=== PATIENT | female | born 1985 | race African-American/Black ===

== ENCOUNTER 2019-03-22 19:45 | Emergency (ER) | payer SELFPAY | END 2019-03-22 20:08 | disposition home or self-care (01) | LOC: NAV ERS 19:45 | DX: F43.9 Reaction to severe stress, unspecified (principal); F32.9 Major depressive disorder, single episode, unspecified; E03.9 Hypothyroidism, unspecified; Z79.899 Other long term (current) drug therapy | CPT/HCPCS: 99283 ==

== ENCOUNTER 2019-08-02 10:09 | Outpatient (CLI) | payer MEDICAID ==
--- NOTE | 2019-08-02 13:25 | ULT ---
EXAM: Abdominal ultrasound complete: HISTORY: Lower abdominal pain, elevated LFTs. COMPARISON: None FINDINGS: The liver appears unremarkable. The gallbladder demonstrates no evidence for gallstones, wall thickening, or pericholecystic fluid. The common bile duct is Within normal limits. Visualized pancreas: Unremarkable. Visualized abdominal aorta: Unremarkable. Visualized IVC: Unremarkable. Visualized spleen: Unremarkable. Visualized kidneys: No evidence for hydronephrosis or solid or cystic mass. No mass, abscess, adenopathy, or abnormal fluid collection or other acute process. IMPRESSION: Unremarkable abdominal ultrasound.
== END 2019-08-02 10:10 | disposition home or self-care (01) ==
LOC: NAV ULT 10:09
PROVIDERS: ATTEND Internal Medicine
DX: R94.5 Abnormal results of liver function studies (principal); R74.0 Nonspecific elevation of levels of transaminase and lactic acid dehydrogenase [LDH]; D64.9 Anemia, unspecified
CPT/HCPCS: 76700

== ENCOUNTER 2019-10-20 10:31 | Emergency (ER) | payer MEDICAID ==
[2019-10-20] MEDS ORDERED: Pantoprazole 40 MG VIAL ONE (11:45)
[2019-10-20] MEDS ORDERED: Ketorolac Tromethamine 30 MG/ML VIAL ONE (11:46)
[2019-10-20] MEDS ORDERED: Ondansetron PF 4 MG/2 ML Vial ONE (11:46)
[2019-10-20 11:51] LABS: Clarity Cloudy (Clear)
[2019-10-20 11:52] LABS: Leukocyte Trace (Negative); Nitrite Positive (Negative); Protein, Urine (Dipstick) Negative (Neg-Trace)
[2019-10-20 11:53] LABS: Bacteria/HPF 4+ HPF (None Seen); Bilirubin Negative (Negative); Blood, Urine Negative (Negative); Glucose, Urine (Dipstick) Negative (Negative)
[2019-10-20 11:54] LABS: ALT (SGPT) 58 U/L (8-55); AST (SGOT) 37 U/L (5-34); Albumin 4.2 g/dL (3.5-5.0); Alkaline Phosphatase 97 U/L (40-110); Anion Gap 14 mmol/L (10-20); BUN (Urea Nitrogen) 8 mg/dL (7.0-18.7); Bilirubin, Total 0.6 mg/dL (0.2-1.2); Calc. Creatinine Clearance 0 mL/min (70-130); Calcium 8.9 mg/dL (7.8-10.44); Carbon Dioxide 22 mmol/L (22-29); Chloride 104 mmol/L (98-107); Estimated GFR-MDRD 84; Globulin 3.2 g/dL (2.4-3.5); Glucose 98 mg/dL (70-105); Lipase 17 U/L (8-78); Potassium 4.2 mmol/L (3.5-5.1); Protein, Total 7.4 g/dL (6.0-8.3); Sodium 136 mmol/L (136-145)
[2019-10-20 11:54] LABS: Pregnancy Test - Urine (BHCG) Negative (Negative); Pregu Control Background? CLEAR/WHITE (CLR/WHITE); Pregu Control Bar Appear? YES (CONTROL BAR)
[2019-10-20 11:55] LABS: Hemoglobin 11.4 g/dL (12.0-16.0); Mean Corpuscular HGB CONC 30.7 g/dL (32.0-36.0); Mean Corpuscular Hemoglobin 27.6 pg (27.0-31.0); Mean Corpuscular Volume 90.1 fL (78.0-98.0); Mean Platelet Volume 10.1 fL (7.4-10.4); Platelet Count 236 thou/uL (130-400); RBC Distribution Width 14.9 % (11.5-14.5); Red Blood Cell (RBC) Count 4.12 mill/uL (4.20-5.40); White Blood Cell (WBC) Count 7.3 thou/uL (4.8-10.8)
[2019-10-20 11:59] LABS: Manual Diff?? YES
[2019-10-20 12:00] LABS: MDiff Complete? YES
[2019-10-20 12:02] LABS: Eosinophils 2 % (0-10); Lymphocytes 26 % (21-51); Monocytes 10 % (0-10); Neutrophil 59 % (42-75)
== END 2019-10-20 12:55 | disposition home or self-care (01) ==
LOC: NAV ERS 10:31
DX: N39.0 Urinary tract infection, site not specified (principal); E03.9 Hypothyroidism, unspecified; J45.909 Unspecified asthma, uncomplicated; Z79.899 Other long term (current) drug therapy
CPT/HCPCS: 80053; 81003; 81015; 81025; 83630; 83690; 84443; 85025; 87045; 87046; 87081; 87427; 87449; 96374; 96375; C9113; J1885; J2405